=== PATIENT | male | born 1935 | race Caucasian/White ===

== ENCOUNTER 2018-07-09 15:02 | Inpatient (IN) ==
[2018-07-09] MEDS ORDERED: ALBUTEROL NEB INH ONE (15:40)
[2018-07-09] MEDS ORDERED: NS 1,000 ML IV ONE (15:43)
[2018-07-09 16:22] LABS: ALLEN TEST YES; BLOOD TYPE ARTERIAL; METHB 1.5 % (0.0-1.5); O2HB 95.4 % (95.0-99.0); PCO2(98.6) 37 mmHg (35-45); PO2(98.6) 92 mmHg (60-100); SAMPLE BLOOD; SAO2 98.9 % (95.0-100.0); THB 12.6 g/dL (11.5-17.4); pH(98.6) 7.48 (7.35-7.45)
[2018-07-09 16:24] LABS: MODALITY CANNULA
--- NOTE | 2018-07-09 16:27 | Diag Imaging Result Doc PS360 ---
EXAM: CHEST-PORTABLE INDICATION: cough TECHNIQUE: One view COMPARISON: 04/27/2018 FINDINGS: The left chest port is stable. Advanced pulmonary fibrosis is again noted. There is increased density in the right perihilar region as compared to the previous study. This is probably due to differences in exposure and inspiration. Superimposed infiltrate is possible, however. There are stable CABG changes. IMPRESSION: Advanced pulmonary fibrosis with increased density in the right perihilar region that could represent superimposed developing infiltrate. Electronically signed by Wan Mcpherson 07/09/2018 4:25 PM
[2018-07-09 17:25] LABS: BASO# 0.01 X1000 (0.0-0.2); BASO% 0.1 % (0.0-0.8); EOS# 0.37 X1000 (0.0-0.7); EOS% 5.5 % (0.0-10.0); HEMATOCRIT 38.6 % (42.0-52.0); HEMOGLOBIN 12.3 g/dL (14.0-18.0); IMM GRAN# 0.02 X1000 (0.0-0.04); IMM GRAN% 0.3 % (0.0-0.5); LYMPH# 0.65 X1000 (1.2-3.4); LYMPH% 9.7 % (20.5-51.1); MCH 29.8 PG (27-31); MCHC 31.9 g/dL (33-37); MCV 93.5 FL (81-99); MONO# 0.47 X1000 (0.11-0.59); MPV 10.5 FL (7.4-10.4); NEUT# 5.21 X1000 (1.4-6.5); NEUT% 77.4 % (42.2-75.2); PLT 281 X1000 (130-400); RBC 4.13 XMIL (4.7-6.1); RDW 14.9 % (11.5-14.5); WBC 6.73 X1000 (4.8-10.8)
[2018-07-09 17:40] LABS: AGAP 13; ALB/GLOB RATIO 1.1; ALBUMIN 2.9 g/dL (3.5-5.0); ALKALINE PHOSPHATASE 83 U/L (32-122); BUN 18 mg/dL (8-22); CALCIUM 8.6 mg/dL (8.8-10.2); CHLORIDE 104 mmol/L (98-107); COSMO 287; ESTIMATED GFR > 60; GLUCOSE 103 mg/dL (70-104); GOT 12 U/L (10-34); GPT 9 U/L (10-44); POTASSIUM 4.2 mmol/L (3.5-5.1); SODIUM 143 mmol/L (136-145); TCO2 26 mmol/L (25-35); TOTAL BILIRUBIN 0.61 mg/dL (0.20-1.00); TOTAL PROTEIN 5.6 g/dL (6.3-8.3)
[2018-07-09] MEDS ORDERED: VANCOMYCIN 1 GM/NS 1 GM/250 ML IVPB IV ONE (18:23)
[2018-07-09] MEDS ORDERED: ZOSYN 3.375 GM in NS 50 ML IV ONE (18:23)
[2018-07-09] MEDS ORDERED: VANCOMYCIN IV PER PHARMACY MISC SCH (18:30)
--- NOTE | 2018-07-09 19:08 | PROVIDER DOCUMENTATION ---
This chart was entered by Nerissa Kellogg Scribe, acting as scribe for Marquis Feldman PA. HPI-Respiratory General - General Chief Complaint: Shortness of Breath Stated Complaint: SHORTNESS OF BREATH Time Seen by Provider: 07/09/18 15:36 Source: patient, other (frend) Allergies/Adverse Reactions: Patient Allergies Allergy/AdvReac Type Severity Reaction Status Date / Time No Known Allergies Allergy Verified 07/09/18 15:22 Home Medications: Home Medication List Medication Instructions Recorded Confirmed Last Taken Type Carvedilol [Coreg] 3.125 mg PO BID 04/25/18 07/09/18 07/08/18 History Albuterol 2.5MG/Ipratrop 0.5MG 3 ml INH RTQ6H #120 neb 04/30/18 07/09/18 Rx [Duoneb] Prednisone 20 mg PO DAILY #30 tablet 04/30/18 07/09/18 07/08/18 Rx Aspirin [Adult Aspirin] 1 tab PO DAILY 07/09/18 07/09/18 07/08/18 History Cholecalciferol (Vitamin D3) 1 tab PO DAILY 07/09/18 07/09/18 07/08/18 History [Vitamin D3] Guaifenesin/Dextromethorphan 1 each PO PRN PRN 07/09/18 07/09/18 07/08/18 History [Mucinex Dm ER 1,200-60 mg Tab] Hydrochlorothiazide 1 tab PO DAILY 07/09/18 07/09/18 07/08/18 History - History of Present Illness-Resp Nature of Presenting Problem: 83 yowm presents to the ed with c/o sob, cough and is currently taking steroids. pt son has POA but lives in [place]. pt sts onset 2 days prior and pt is speaking in 2 word sentences. pt had x of pneumonia in 04/23 and has cancer but is in no tx Quality of Pain: reports: fullness Severity in ED: reports: moderate Onset/Duration: reports: 2 days ago Timing: reports: still present Exposure: reports: unknown cause Current Respiratory Medication Therapy: Initiated see nurses note Modifying Factors: improves with: albuterol inhaler, rest, sitting upright. worse with: exertion, coughing Associated Symptoms: reports: cough, hyperventilating (36), shortness of breath , wheezing. denies: dizziness, fever/chills Similar Symptoms Previously?: Yes (hx of pneumonia) Recently seen or treated by another doctor?: Yes Review of Systems - Adult - REVIEW OF SYSTEMS - ADULT ROS:: limited per condition Constitutional: denies: chills, fever Eyes: reports: no symptoms reported Ears, Nose, Mouth & Throat: reports: no symptoms reported Cardiovascular: denies: chest pain, palpitations Respiratory: reports: see HPI, cough, dyspnea on exertion, shortness of breath, wheezing Gastrointestinal: denies: abdominal pain, diarrhea, nausea, vomiting Genitourinary: reports: no symptoms reported Musculoskeletal: denies: back pain, muscle aches, neck pain Integumentary: reports: no symptoms reported Neurological: denies: dizziness/vertigo, headache/migraines, seizure, slurred speech Psychiatric: reports: no symptoms reported Endocrine: reports: no symptoms reported Hematologic/Lymphatic: reports: no symptoms reported Allergic/Immunologic: reports: no symptoms reported All Other Systems: Reviewed and Negative Past History - Adult - PAST MEDICAL HISTORY-ADULT Review of Records: reports: Old Records Reviewed, Nursing Assessment Review, Medications Reviewed, Social history reviewed & non-contributory. Major Childhood Illnesses: reports: denies history Cardiovascular: reports: cardiac disease, CAD, HTN Respiratory: reports: COPD, cancer Gastrointestinal: reports: denies history Genitourinary: reports: denies history Musculoskeletal: reports: denies history Neurological: reports: denies history Psychiatric: reports: denies history Endocrine/Immune: reports: denies history Other Conditions: reports: denies history - PRIOR SURGERIES/PROCEDURES Surgical/Procedure History: reports: appendectomy, CABG, back/neck - IMMUNIZATION STATUS Childhood Immunizations: See Nurse Assessment Flu Vaccine: See Nurse Assessment - FAMILY HISTORY Family History: reviewed, not pertinent - SOCIAL HISTORY Smoking: denies Substance Use: alcohol Alcohol Use Frequency: 2-3 times a month Number of drinks per typical drinking period:: 3-4 drinks Living Situation: family Physical Exam-General - PHYSICAL EXAM-ADULT Initial Vital Signs Reviewed: Yes - CONSTITUTIONAL General Appearance: alert, moderate distress - EYES Eyes: PERRL/EOMI, pink conjunctivae - HEAD, EARS, NOSE, MOUTH & THROAT HENMT: moist mucous membranes - NECK Neck: full range of motion, normal inspection - RESPIRATORY Respiratory: respiratory distress, decreased breath sounds, rhonchi (RUL), increased rate (36) - CARDIOVASCULAR Cardiovascular: normal peripheral pulses, tachycardia (106) - GASTROINTESTINAL (ABDOMEN) Abdominal Exam: normal bowel sounds, non tender, soft - LYMPHATIC Lymphatic: no adenopathy - MUSCULOSKELETAL Back Exam: normal inspection, no CVA tenderness, no vertebral tenderness Extremity: normal range of motion, non-tender, normal inspection, no pedal edema , no calf tenderness, normal capillary refill, pelvis stable - SKIN Integumentary: normal color, normal turgor, warm/dry - NEUROLOGIC Neurologic: grossly normal, no motor/sensory deficits - PSYCHIATRIC Psych/Mental Status: normal mood/affect, normal thought content, normal thought process, oriented x 3 Progress - PLAN OF CARE/RESULTS Progress/Plan/Lab Results: Vital Signs - 8 hr 07/09/18 15:09 07/09/18 15:52 07/09/18 16:04 Temperature 97.4 F L Pulse Rate 106 H Respiratory Rate 36 H Blood Pressure 147/95 177/110 O2 Sat by Pulse Oximetry 89 L 94 L 96 07/09/18 16:10 07/09/18 16:23 07/09/18 16:32 Temperature Pulse Rate 104 H Respiratory Rate 18 Blood Pressure 147/74 O2 Sat by Pulse Oximetry 94 L 100 07/09/18 17:02 07/09/18 17:31 Temperature Pulse Rate 98 H Respiratory Rate 20 Blood Pressure 121/90 139/66 O2 Sat by Pulse Oximetry 97 96 Laboratory Results - last 24 hr 07/09/18 07/09/18 07/09/18 16:14 16:49 16:49 WBC 6.73 RBC 4.13 L Hgb 12.3 L Hct 38.6 L MCV 93.5 MCH 29.8 MCHC 31.9 L RDW Std Deviation 14.9 H Plt Count 281 MPV 10.5 H Immature Gran % (Auto) 0.3 Neut % (Auto) 77.4 H Lymph % (Auto) 9.7 L [place] % (Auto) 7.0 Eos % (Auto) 5.5 Baso % (Auto) 0.1 Immature Gran # (Auto) 0.02 Neut # (Auto) 5.21 Lymph # (Auto) 0.65 L [place] # (Auto) 0.47 Eos # (Auto) 0.37 Baso # (Auto) 0.01 Specimen Type ARTERIAL Sample Site R RADIAL pH 7.48 H pCO2 37 pO2 92 HCO3 28.0 H Base Excess 4.0 H Oxyhemoglobin 95.4 ABG O2 Sat (Calculated) 17.0 ABG O2 Saturation 98.9 ABG Carboxyhemoglobin 2.10 ABG Methemoglobin 1.5 Ramon Test YES A-a O2 Difference 90.0 Total Hemoglobin 12.6 Lactate 1.70 Liter Flow 3.0 Blood Gas Modality CAN[place]ULA FiO2 % 32.0 Sodium 143 Potassium 4.2 Chloride 104 Carbon Dioxide 26 Anion Gap 13 BUN 18 Creatinine 1.0 Estimated GFR/1.73 m2 > 60 BUN/Creatinine Ratio 18 Glucose 103 Calculated Osmolality 287 Calcium 8.6 L Total Bilirubin 0.61 AST 12 ALT 9 L Alkaline Phosphatase 83 Troponin T Total Protein 5.6 L Albumin 2.9 L Globulin 2.7 Albumin/Globulin Ratio 1.1 Plasma Lactate 07/09/18 07/09/18 16:49 16:49 WBC RBC Hgb Hct MCV MCH MCHC RDW Std Deviation Plt Count MPV Immature Gran % (Auto) Neut % (Auto) Lymph % (Auto) [place] % (Auto) Eos % (Auto) Baso % (Auto) Immature Gran # (Auto) Neut # (Auto) Lymph # (Auto) [place] # (Auto) Eos # (Auto) Baso # (Auto) Specimen Type Sample Site pH pCO2 pO2 HCO3 Base Excess Oxyhemoglobin ABG O2 Sat (Calculated) ABG O2 Saturation ABG Carboxyhemoglobin ABG Methemoglobin Ramon Test A-a O2 Difference Total Hemoglobin Lactate Liter Flow Blood Gas Modality FiO2 % Sodium Potassium Chloride Carbon Dioxide Anion Gap BUN Creatinine Estimated GFR/1.73 m2 BUN/Creatinine Ratio Glucose Calculated Osmolality Calcium Total Bilirubin AST ALT Alkaline Phosphatase Troponin T 0.014 Total Protein Albumin Globulin Albumin/Globulin Ratio Plasma Lactate 1.5 Orders Category Date Time Status Admit - [facility] Routine AdmDCTranf 07/09/18 18:25 Active Activity - Up with Assistance ORDERED Care 07/09/18 19:02 Active Elevate Head of Bed DIRECTED Care 07/09/18 19:02 Active Encourage Fluids DIRECTED Care 07/09/18 19:02 Active Intake and Output-Strict Q 8-HR ASSESS Care 07/09/18 19:02 Active Nursing- Assist w/ IS as order ORDERED Care 07/09/18 19:02 Active Nursing- Obtain EKG once Care 07/09/18 15:42 Completed Oxygen Therapy- ED Nursing DIRECTED Care 07/09/18 15:40 Completed Saline Loc NOW Care 07/09/18 15:40 Inactive Turn, Cough and Deep Breathe Q2HR Care 07/09/18 19:02 Active Vital Signs Order Q 4-HR ASSESS Care 07/09/18 19:02 Active Z-Document. for Tele Applied ORDERED Care 07/09/18 19:02 Active Social Service Consult Routine Cons 07/09/18 19:02 Active Regular Diet Diet 07/09/18 18:25 Active CHEST-2 VIEWS [RAD] Routine Exams 07/10/18 06:00 Ordered CHEST-PORTABLE [RAD] Stat Exams 07/09/18 15:40 Completed ABG [RESP] Routine Lab 07/09/18 16:14 Completed BLOOD CULTURE [BLDCUL] Stat Lab 07/09/18 16:49 Ordered CBC WITH DIFF [HEME] Routine Lab 07/10/18 06:00 Ordered CBC WITH ELECTRONIC DIFF [HEME] Stat Lab 07/09/18 16:49 Completed COMPREHENSIVE METABOLIC PANEL [CHEM] Routine Lab 07/10/18 06:00 Ordered COMPREHENSIVE METABOLIC PANEL [CHEM] Stat Lab 07/09/18 16:49 Completed LACTATE, PLASMA [CHEM] Stat Lab 07/09/18 16:49 Completed SPUTUM CULTURE WITH GRAM STAIN [RM] Routine Lab 07/09/18 18:25 Uncollected TROPONIN T Stat Lab 07/09/18 16:49 Completed 0.9% Sodium Chloride Inj [Ns] 1,000 ml Med 07/09/18 15:43 Discontinued IV 999 mls/hr Acetylcysteine 20% [Mucomyst 20%] Med 07/09/18 19:30 Active 3 ml INH RTBID Albuterol [Albuterol Neb] Med 07/09/18 15:40 Discontinued 5 mg INH NOW ONE Aspirin EC Med 07/10/18 09:00 Active 81 mg PO DAILY Budesonide [Pulmicort] Med 07/09/18 19:30 Active 0.5 mg INH RTBID Carvedilol [Coreg] Med 07/09/18 21:00 Active 3.125 mg PO BID Enoxaparin [Lovenox] Med 07/10/18 09:00 Active 40 mg SUBQ Q24H Ergocalciferol (Vitamin D2) [Vitamin D] Med 07/10/18 09:00 Pending 1 unit PO Q7D Hydrochlorothiazide Med 07/10/18 09:00 Active 25 mg PO DAILY Ipratropium [place] Neb [Atrovent Neb] Med 07/09/18 19:30 Active 0.5 mg INH RTQ4H Levalbuterol Neb [Xopenex Neb] Med 07/09/18 19:30 Active 1.25 mg INH RTQ4H Pharmacy Order [Vancomycin IV Per Pharmacy] Med 07/09/18 18:30 Active 1 each MISC DIRECTED Piperacillin/Tazobactam [Zosyn] 3.375 gm Med 07/09/18 18:23 Discontinued 0.9% Sodium Chloride Inj [Ns] 50 ml IV NOW Piperacillin/Tazobactam [Zosyn] 3.375 gm Med 07/10/18 01:00 Active 0.9% Sodium Chloride Inj [Ns] 50 ml IV Q6H Prednisone Med 07/10/18 09:00 Active 20 mg PO DAILY Aerosol Treatments Routine Oth 07/09/18 18:25 Active Aerosol Treatments Stat Oth 07/09/18 15:40 Completed Incentive Spirometer Routine Oth 07/09/18 19:02 Active Oxygen Device Routine Oth 07/09/18 19:02 Active Pulse Oximetry Routine Oth 07/09/18 19:02 Active Telemetry [OM.EQ] Routine Oth 07/09/18 19:02 Active Transfer/Admit Order [TRANSFER] Routine Transfer 07/09/18 18:20 Completed 1840: breathing between words. CXR likely pna. Hypoxic on arrival. Will admit. Discussed with Dr. Link. Result Diagrams: 07/09/18 16:49 07/09/18 16:49 - REASSESSMENT Reassessment #1 Time Reassessed: 16:10 Status: unchanged - EKG 1 Time of EKG reading by physician:: 15:14 EKG Read and Signed by:: Raz Link EKG Interpretation (*Must complete 3 of following elements*): Abnormal Rate: 105 Rhythm: sinus tachycardia with 1st degree AV block [place]: normal QRS: other (possible left atrial enlargement/low voltage QRS) VA Interval: normal ST Wave: normal Comments: inferior infarct, age undetermined - XRAY 1 XRAY: Bilateral XRAY Study: Chest (EXAM: CHEST-PORTABLE INDICATION: cough TECHNIQUE: One view COMPARISON: 04/27/2018 FINDINGS: The left chest port is stable. Advanced pulmonary fibrosis is again noted. There is increased density in the right perihilar region as compared to the previous study. This is probably due to differences in exposure and inspiration. Superimposed infiltrate is possible , however. There are stable CABG changes. IMPRESSION: Advanced pulmonary fibrosis with increased density in the right perihilar region that could represent superimposed developing infiltrate. Electronically signed by Wan Mcpherson 07/09/2018 4:25 PM 07/09/18 1625 Interpreting Physician: Wan Mcpherson MD Dictated Date/Time: 07/09/18 1623 cc: Marquis Feldman PA; Kyree Scales) Impression: See EMR Report - CONSULTS/PCP/HOSPITALIST Notification #1 *Consult/PCP/Hospitalist*: Kathy SCOTT Time Discussed: 18:30 Consult Disposition: Admit (vanc/zosyn.) Departure - Departure Date of Disposition Decision: 07/09/18 Time of Disposition Decision: 18:54 DIAGNOSIS: Hypoxemia Pneumonia Qualifiers: Pneumonia type: due to unspecified organism Laterality: unspecified laterality Lung location: unspecified part of lung Qualified Code(s): J18.9 - Pneumonia, unspecified organism Lung cancer Qualifiers: Laterality: unspecified laterality Lung location: unspecified part of lung Qualified Code(s): C34.90 - Malignant neoplasm of unspecified part of unspecified bronchus or lung Disposition: ADMITTED INPATIENT 09 Certified Medical Emergency: Emergent Condition: Stable - Critical Care Note This patient required my direct & personal management of CC.: Yes Total Time (mins): 42 Critical Care Statement: This patient required my direct personal management to treat or rule out processes, the absence of which, could potentiallly result in sudden, clinically significant life or limb threatening deterioration. Attestation - Physician/ HELENA Attestation Patient care was provided by Advanced Practice Provider:: Yes Advanced Practice Provider:: Marquis Feldman Advanced Practice Provider documentation review:: The Mid-level provider documentation, treatment plan and medical decision making was reviewed by the physician who agrees with all treatment and medical decision making by the MLP. The physician spent face to face time with patient:: No Advanced Practice Provider documentation review:: Supervising physician onsite and consulted in the evaluation and care of this patient. The physician did not have a face to face encounter with the patient. This chart was documented by the indicated scribe, (Nerissa Kellogg Scribe) and accurately reflects the services I performed and decisions made by me, Marquis Feldman PA, as attested by the provider's signature.
[2018-07-09] MEDS: XOPENEX NEB INH SCH ×2 (19:30→23:30)
[2018-07-09] MEDS: PULMICORT INH SCH (19:30)
[2018-07-09] MEDS: ATROVENT NEB INH SCH ×2 (19:30→23:30)
[2018-07-09] MEDS: MUCOMYST 20% INH SCH (19:30)
[2018-07-09] MEDS: NEURONTIN PO SCH (21:00)
[2018-07-09] MEDS: COREG PO SCH (21:00)
[2018-07-09] MEDS ORDERED: VANCOMYCIN 1.9 GM in NS 500 ML IV ONE (21:00)
--- NOTE | 2018-07-09 21:16 | Diag Imaging Result Doc PS360 ---
EXAM: CT THORAX W/CONTRAST - 07/09/2018 HISTORY: sob; lung cancer TECHNIQUE: CT thorax with intravenous contrast COMPARISON: 04/25/2018 FINDINGS: There are emphysematous changes. There are some interstitial scarring/fibrosis. There is consolidation at the right lower lobe and posterior right upper lobe which is suspicious for pneumonia. There is no substantial pleural effusion or pneumothorax identified. There is mild fullness of the subcarinal mediastinum similar to prior. There are calcified gallstone noted in the gallbladder. IMPRESSION: Emphysematous changes. Interstitial fibrosis. Consolidation at right lower lobe and posterior right upper lobe, compatible with pneumonia. This exam was performed using automated exposure control, adjustment of mA or kV according to patient size, and/or use of iterative reconstruction technique. Electronically signed by Wilmar Berumen 07/09/2018 9:13 PM
--- NOTE | 2018-07-09 21:41 | HISTORY AND PHYSICAL ---
PRIMARY CARE PROVIDER: Dr. Kyree Scales. PRIMARY CUSTOMER SERVICE REPRESENTATIVE TELLER: Dr. Eddie Lyon out of [place]. PRIMARY ONCOLOGIST: Dr. Wan Zelaya out of [place]. CHIEF COMPLAINT: Shortness of breath. HISTORY OF PRESENT ILLNESS: Mr. Jacinta Woodson is an 83-year-old male with a medical history of inoperable lung cancers on both sides diagnosed in September 2017. He has been receiving treatments, but currently treatments are now held due to decompensating. He is here for complaints of shortness of breath that has worsened over the last 36 hours with sinus and chest congestion. He does have a productive cough but is unable to tell me what color , or if it has a color. He has no other complaints other than it is difficult to even speak given the significant shortness of breath. A chest x-ray reveals that there is advanced pulmonary fibrosis, and in the right perihilar region there could be a developing infiltrate. Currently his white count is normal, and lactate is normal, but we will go ahead and get him admitted given his difficulties with breathing. Will admit to [facility] and treat accordingly. PAST MEDICAL HISTORY: 1. Lung cancer, both lungs, with September 2017 diagnosis, and he has received treatment, but currently is not receiving treatment. 2. Hypertension. 3. Coronary artery disease. Had CABG x4 in the past. 4. COPD on continuous 3 liters O2. 5. Bilateral lower extremity neuropathy. PAST SURGICAL HISTORY: 1. CABG x4. 2. Portacath. 3. Lung biopsy. 4. Left carotid endarterectomy but no history of stroke. 5. Tonsillectomy/adenoidectomy. 6. Appendectomy. SOCIAL HISTORY: Quit smoking in 1995, but prior to that he smoked 2 packs per day for 40 years on and off. No smokeless tobacco, but he drinks 1 ounce of 80 to 100-proof whiskey every night. He denies any illicit drug use. He lives at home alone. His best friend is at the bedside with him. FAMILY HISTORY: He does not know his mother's history. Said his father in 1974 from lung cancer. ALLERGIES: No known drug allergies. HOME MEDICATIONS: 1. Aspirin 81 mg p.o. daily. 2. Coreg 3.125 mg p.o. twice daily 3. Vitamin D3 at 50,000 units p.o. daily. 4. Mucinex DM 1200 mg as needed. 5. Hydrochlorothiazide 25 mg p.o. daily 6. DuoNeb every 6 hours. 7. Prednisone 20 mg p.o. daily. REVIEW OF SYSTEMS: A 14-point review of systems is completed, and all are negative except as mentioned above in the HPI. He denies having any fevers, but he always has chills. He has sinus and chest congestion with shortness of breath that has worsened over the last 36 hours. He does have a productive cough but is unable to state what color the phlegm is. PHYSICAL EXAMINATION: VITAL SIGNS: Temperature 97.4, heart rate 98,. respiratory rate 20, blood pressure 139/66, O2 saturation 96% on 3 liters nasal cannula. GENERAL: Mr. Jacinta Woodson is an 83-year-old male with a medical history of lung cancer. He is able to answer questions appropriately. He is just slow to respond given the difficulties with respirations. HEENT: Atraumatic, normocephalic. Pupils equal, round, and reactive to light. Extraocular movements intact. Mucous membranes are dry. NECK: Trachea is midline. CARDIOVASCULAR: S1 and S2, tachycardic rate and rhythm. No rubs, gallops or murmurs. No lower extremity edema and +2 dorsalis and radial pulses. Negative JVD or carotid bruits. PULMONARY: Coarse throughout. Rhonchi throughout anteriorly. Increased work of breathing. Mild accessory muscle use. He is tolerating 3 liters nasal cannula as of right now. GI: Soft, nontender, nondistended. Positive bowel sounds x4. EXTREMITIES: Moves all extremities equally with full range of motion. NEUROLOGIC: Alert and oriented x3. Follows commands. Sensory is intact but decreased. Tingling in the feet. SKIN: Warm, dry and intact. LABORATORY DATA: White blood cells 6000, hemoglobin 12, hematocrit 38, platelet count 281. ABGs on 3 liters nasal cannula show a pH of 7.48, pCO2 of 37, pO2 of 92, bicarb of 28 , base excess 4, saturation 95% with a lactate of 1.7. Serum lactate is 1.5, sodium 143, potassium 4.2, BUN 18, creatinine 1.0. Glucose 103, calcium 8.6, bilirubin 0.61, AST 12, ALT 9, troponin 0.014, albumin 2.9. IMAGING: Chest x-ray: Advanced pulmonary fibrosis with increased density in the right perihilar region that could represent superimposed developing infiltrate. ASSESSMENT/PLAN: 1. Zojhex-rewr-[id number] pneumonia, primarily on the right. He is coarse throughout. He had hypoxia. He is on continuous 3 liters. This continued and improved after nebulizers. He will be given broad-spectrum antibiotics. Lactate is normal. White count is normal. 2. Chronic obstructive pulmonary disease with mild hypoxia at this time. No CO2 retention. He is getting a 1-time dose of IV Solu-Medrol. Will continue on prednisone daily. Nebulizers scheduled. 3. Hypertension. Continue home medications. 4. Coronary artery disease. Denies chest pain. 5. Bilateral lung cancer. Treatments are being held at this time. Followed by Dr. Zelaya out of [place]. Was diagnosed in September 2017. 6. Complaints of bilateral lower extremity neuropathy symptoms, likely secondary to cancer treatment. Will add Neurontin to medications. 7. Anemia, currently stable. It is actually more elevated than the usual. It is usually around 9, and his hemoglobin is 12 right now. Vitals are stable with that. 8. Deep venous thrombosis prophylaxis with Lovenox. Dictated by SONIA Barbosa for Steve Gentile MD Addendum: Patient seen and examined by myself. Agree with SONIA note. It reflects my assessment and plan. Patient is being admitted to hospital for HCAP. Will start broad spectrum IV antibiotics and breathing treatments that will help with COPD exacerbation as well. Patient also has lung cancer. Will do CT of chest to have a better visualization of lung anatomy and see if there is any progression of lung cancer. Will monitor patient closely. cc: SONIA Barbosa MD Chad Mcelroy, MD Jason Smith, MD John M. Waples, MD MTDD
[2018-07-09] MEDS: MUCINEX PO SCH (22:32)
[2018-07-10] MEDS: TESSALON PO PRN ×3 (00:05→21:49)
[2018-07-10] MEDS: ZOSYN 3.375 GM in NS 50 ML IV SCH ×5 (01:00→23:59)
[2018-07-10] MEDS: ATROVENT NEB INH SCH ×7 (03:30→23:35)
[2018-07-10] MEDS: XOPENEX NEB INH SCH ×7 (03:30→23:35)
[2018-07-10] MEDS: HYDROMET LIQUID PO PRN ×2 (04:56→21:45)
[2018-07-10 07:23] LABS: BASO# 0.03 X1000 (0.0-0.2); BASO% 0.6 % (0.0-0.8); EOS# 0.28 X1000 (0.0-0.7); HEMOGLOBIN 11.1 g/dL (14.0-18.0); LYMPH# 0.45 X1000 (1.2-3.4); LYMPH% 9.6 % (20.5-51.1); MCH 30.2 PG (27-31); MCHC 31.7 g/dL (33-37); MCV 95.1 FL (81-99); MONO# 0.42 X1000 (0.11-0.59); MPV 10.2 FL (7.4-10.4); NEUT# 3.51 X1000 (1.4-6.5); NEUT% 74.8 % (42.2-75.2); PLT 231 X1000 (130-400); RBC 3.68 XMIL (4.7-6.1); RDW 15.1 % (11.5-14.5); WBC 4.69 X1000 (4.8-10.8)
[2018-07-10] MEDS: PULMICORT INH SCH ×2 (07:27→20:05)
[2018-07-10 07:54] LABS: ALB/GLOB RATIO 0.9; ALBUMIN 2.6 g/dL (3.5-5.0); CREATININE 1.2 mg/dL (0.7-1.2); TOTAL BILIRUBIN 0.62 mg/dL (0.20-1.00); TOTAL PROTEIN 5.4 g/dL (6.3-8.3)
[2018-07-10] MEDS: MUCINEX PO SCH ×2 (08:49→21:50)
[2018-07-10] MEDS: LOVENOX SUBQ SCH (08:50)
[2018-07-10] MEDS: HYDROCHLOROTHIAZIDE PO SCH (08:50)
[2018-07-10] MEDS: PREDNISONE PO SCH (08:50)
--- NOTE | 2018-07-10 09:50 | EKG Report ---
Test Performed on : 07/09/2018 3:14:30 PM Test Reason : SOB Blood Pressure : / mmHG Vent. Rate : 105 BPM Atrial Rate : 105 BPM P-R Int : 212 ms QRS Dur : 072 ms QT Int : 336 ms P-R-T Axes : 040 -22 038 degrees QTc Int : 444 ms Sinus tachycardia. with 1st degree AV block. Possible Left atrial enlargement Low voltage QRS Inferior infarct , age undetermined Abnormal ECG When compared with ECG of 24-APR-2018 21:42, Inferior infarct is now present T wave inversion now evident in Anterior leads Unconfirmed Result
--- NOTE | 2018-07-10 10:08 | Diag Imaging Result Doc PS360 ---
EXAM: CHEST-2 VIEWS HISTORY: Pneumonia TECHNIQUE: Chest two views COMPARISON: 07/09/2018 FINDINGS: Poor inspiratory effort. There are increased interstitial markings diffusely within both lungs. No change in the left subclavian portacatheter. No pneumothorax. Sternal wires and surgical clips are present. No cardiomegaly. IMPRESSION: Stable chest. Electronically signed by Sesar Shipley 07/10/2018 10:05 AM
[2018-07-10] MEDS: MUCOMYST 20% INH SCH ×2 (11:20→20:06)
[2018-07-10] MEDS: ASPIRIN EC PO SCH (14:12)
[2018-07-10] MEDS: COREG PO SCH ×2 (14:14→21:50)
[2018-07-10] MEDS: NEURONTIN PO SCH ×2 (14:14→21:50)
--- NOTE | 2018-07-10 16:29 | PROGRESS NOTE ---
DATE: 07/10/2017 SUBJECTIVE: Patient reports still feeling short of breath better in comparing with yesterday but still that sensation is present. OBJECTIVE: Vital Signs: Temperature 97.3 degrees, heart rate 92, respiratory rate 28, blood pressure 130/61, O2 saturation 97% on 4 L nasal cannula. General: This is a chronically ill- looking 83-year-old male lying in bed in no acute distress. HEENT: Head is normocephalic, atraumatic. Neck: No JVD noted. No carotid bruits. No lymphadenopathy, no thyromegaly. Cardiovascular: S1, S2 heard tachycardic. No murmurs, gallops, or rubs. Respiratory: Coarse breath sound and wheezing noted in both pulmonary sanchez mostly noted in both bases but patient is not using any accessory muscles or having work of breathing. Abdomen: Soft, nontender to palpation, bowel sounds present. No organomegaly. Extremities: No clubbing, cyanosis, or edema. Peripheral pulses present in both legs. Neurologic: Patient alert oriented x3 and moves 4 extremities. LABORATORY DATA: Reviewed. ASSESSMENT AND PLAN: 1. Healthcare-associated pneumonia. Patient is on vancomycin and Zosyn, patient is on 4 L of oxygen is still complaining of shortness of breath, breathing treatments every 4 hours so at this point will continue with same management. 2. Chronic obstructive pulmonary disease exacerbation. Because of being in any CO2 retention will continue with breathing treatments and Solu-Medrol. 3. Hypertension, blood pressure is under control. Will continue with the same management. 4. Bilateral lung cancer. We have done CT of the chest yesterday and basically this shows emphysematous changes with interstitial fibrosis but did not look like the cancer is getting enlarged so at this point we are going to continue with same management. 5. Peripheral neuropathy, will continue with Neurontin. 6. Anemia chronic disease hemoglobin stable. Will continue to monitor CBC daily. cc: Steve Gentile MD
[2018-07-10] MEDS: VANCOMYCIN 1.4 GM in NS 250 ML IV SCH (21:50)
[2018-07-11] MEDS: XOPENEX NEB INH SCH ×3 (03:53→11:33)
[2018-07-11] MEDS: ATROVENT NEB INH SCH ×3 (03:53→11:33)
[2018-07-11] MEDS: ZOSYN 3.375 GM in NS 50 ML IV SCH (06:42)
[2018-07-11] MEDS: HYDROMET LIQUID PO PRN ×3 (06:48→20:20)
[2018-07-11] MEDS: TESSALON PO PRN ×2 (06:48→13:49)
[2018-07-11] MEDS: MUCOMYST 20% INH SCH ×2 (07:38→19:21)
[2018-07-11] MEDS: PULMICORT INH SCH ×2 (07:38→19:20)
[2018-07-11] MEDS: ASPIRIN EC PO SCH (09:49)
[2018-07-11] MEDS: LOVENOX SUBQ SCH (09:49)
[2018-07-11] MEDS: NEURONTIN PO SCH ×2 (09:49→20:22)
[2018-07-11] MEDS: COREG PO SCH ×2 (09:49→20:21)
[2018-07-11] MEDS: HYDROCHLOROTHIAZIDE PO SCH (09:49)
[2018-07-11] MEDS: PREDNISONE PO SCH (09:50)
[2018-07-11] MEDS: MUCINEX PO SCH ×2 (09:50→20:22)
[2018-07-11] MEDS ORDERED: DUONEB (A & A) INH PRN (13:18)
[2018-07-11] MEDS: SODIUM CHLORIDE 0.9% INJ SCH (13:56)
[2018-07-11] MEDS: PROTONIX IV SCH (13:56)
[2018-07-11] MEDS: MAXIPIME 2 GM in NS 100 ML IV SCH (13:56)
[2018-07-11] MEDS: SOLU-MEDROL IV SCH ×2 (13:57→20:21)
--- NOTE | 2018-07-11 15:12 | PROGRESS NOTE ---
DATE: 07/11/2018 SUBJECTIVE: Patient reports still feeling short of breath. He reports some medications already for cough. OBJECTIVE: Vital Signs: Temperature 100.4, heart rate 97, respiratory rate 20, blood pressure 136/63, O2 saturation 97% on 4 L nasal cannula. General: This is a chronically ill-looking, 83- year-old, male, lying in bed, in no acute distress. Cardiovascular: S1 and S2 heard. No murmurs, gallops, or rubs. Regular rate and rhythm. Respiratory: Coarse breath sounds noted as well as wheezing in both pulmonary sanchez. Patient is not using any accessory muscles or having work of breathing. Abdomen: Soft. Nontender to palpation. Bowel sounds present. No organomegaly. Extremities: No clubbing, cyanosis, or edema. Peripheral pulses present in both legs. Neurologic Exam: Patient alert and oriented x3. Moves 4 extremities. LABORATORY DATA: Reviewed. ASSESSMENT AND PLAN: 1. Healthcare-associated pneumonia. The patient is on vancomycin and Zosyn, but, unfortunately, he is still spiking fever. At this point, will continue with the same management. 2. Chronic obstructive pulmonary disease exacerbation. Will continue with breathing treatments and Solu-Medrol intravenously as well. 3. Hypertension. Blood pressure is under control. Will continue with the same management. 4. Bilateral lung cancer. The CT that we had done yesterday showed interstitial fibrosis, but no enlargement of the tumor. 5. Anemia of chronic disease. Hemoglobin is stable. Will continue to monitor CBC. DISPOSITION: I think at this point, considering that this patient is still spiking fever, I prefer to continue to monitor for 24 hours. If he continues to spike fever, then we will switch antibiotics. cc: Steve Gentile MD
[2018-07-11] MEDS: DUONEB (A & A) INH SCH ×3 (15:38→23:20)
[2018-07-11] MEDS: VANCOMYCIN 1.4 GM in NS 250 ML IV SCH (20:21)
[2018-07-12] MEDS: TESSALON PO PRN ×4 (01:43→23:03)
[2018-07-12] MEDS: MAXIPIME 2 GM in NS 100 ML IV SCH ×2 (01:44→13:07)
[2018-07-12] MEDS: HYDROMET LIQUID PO PRN ×4 (01:50→23:03)
[2018-07-12] MEDS: DUONEB (A & A) INH SCH ×6 (03:10→23:10)
[2018-07-12] MEDS: SOLU-MEDROL IV SCH ×3 (05:39→23:04)
[2018-07-12] MEDS: PULMICORT INH SCH ×2 (07:50→19:13)
[2018-07-12] MEDS: MUCOMYST 20% INH SCH ×2 (07:50→19:12)
[2018-07-12] MEDS: COREG PO SCH ×2 (09:21→23:04)
[2018-07-12] MEDS: NEURONTIN PO SCH ×2 (09:21→23:03)
[2018-07-12] MEDS: MUCINEX PO SCH ×2 (09:22→23:03)
[2018-07-12] MEDS: ASPIRIN EC PO SCH (09:22)
[2018-07-12] MEDS: LOVENOX SUBQ SCH (09:22)
[2018-07-12] MEDS: HYDROCHLOROTHIAZIDE PO SCH (09:22)
[2018-07-12 10:12] LABS: BASO# 0.01 X1000 (0.0-0.2); BASO% 0.1 % (0.0-0.8); HEMATOCRIT 37.8 % (42.0-52.0); IMM GRAN# 0.02 X1000 (0.0-0.04); IMM GRAN% 0.3 % (0.0-0.5); LYMPH# 0.22 X1000 (1.2-3.4); LYMPH% 3.2 % (20.5-51.1); MCH 29.4 PG (27-31); MCHC 31.7 g/dL (33-37); MCV 92.6 FL (81-99); MONO# 0.34 X1000 (0.11-0.59); MONO% 4.9 % (1.7-9.3); MPV 10.3 FL (7.4-10.4); NEUT# 6.36 X1000 (1.4-6.5); NEUT% 91.5 % (42.2-75.2); PLT 203 X1000 (130-400); RBC 4.08 XMIL (4.7-6.1); RDW 14.2 % (11.5-14.5); WBC 6.95 X1000 (4.8-10.8)
[2018-07-12 10:26] LABS: CALCIUM 8.1 mg/dL (8.8-10.2); CREATININE 1.2 mg/dL (0.7-1.2)
[2018-07-12 10:53] LABS: BANDS 26 % (0-1); LYMPHS 2 % (21-51); MONO 2 % (1-9); SEGS 70 % (42-75)
[2018-07-12] MEDS: SODIUM CHLORIDE 0.9% INJ SCH (13:07)
[2018-07-12] MEDS: PROTONIX IV SCH (13:07)
[2018-07-12] MEDS: MIRALAX PO SCH (13:17)
--- NOTE | 2018-07-12 18:46 | PROGRESS NOTE ---
DATE: 07/12/2018 SUBJECTIVE: Patient reports feeling still short of breath with some cough that she is not able to bring out, no other complaints noted. OBJECTIVE: Vitals: Temperature 97.7 degrees, heart rate 96, respiratory rate 22, blood pressure 127/72, O2 saturation 95% on 3 L nasal cannula. General: This is a chronically ill- looking 83-year-old male lying in bed in no acute distress. HEENT: Head is normocephalic, atraumatic. Neck: No JVD noted. No carotid bruits. No lymphadenopathy, no thyromegaly. Cardiovascular: S1, S2 heard. No murmurs, gallops, or rubs. Regular rate and rhythm. Respiratory: Breath sounds still noted in both pulmonary sanchez as well as wheezing worse in both pulmonary bases patient not using any accessory muscles or having work of breathing. Abdomen: Soft, nontender to palpation, bowel sounds present, no organomegaly. Extremities: No clubbing, cyanosis, or edema, peripheral pulses present in both legs. Neurological: Patient alert oriented x3. Moves 4 extremities. LABORATORY DATA: Reviewed. ASSESSMENT AND PLAN: 1. Healthcare-associated pneumonia. Patient on vancomycin and Zosyn. At the time of my examination is 24 hours since he has not fever any more. At this point will continue with the same management. 2. Chronic obstructive pulmonary disease exacerbation, will continue with breathing treatment and Solu-Medrol IV as well. 3. Hypertension, blood pressures acceptable, will continue with same medications. 4. Bilateral lung cancer, no expansions of the lung cancer according to the last CT that we have done. 5. Anemia of chronic disease, hemoglobin stable, will continue to monitor. 6. Disposition. At this point will continue with same management. cc: Steve Gentile MD
[2018-07-12] MEDS: VANCOMYCIN 1.4 GM in NS 250 ML IV SCH (23:03)
[2018-07-13] MEDS: MAXIPIME 2 GM in NS 100 ML IV SCH ×2 (01:20→15:11)
[2018-07-13] MEDS: DUONEB (A & A) INH SCH ×6 (03:21→23:45)
[2018-07-13] MEDS: HYDROMET LIQUID PO PRN ×2 (05:38→22:45)
[2018-07-13] MEDS: SOLU-MEDROL IV SCH ×3 (05:38→22:45)
[2018-07-13] MEDS: TESSALON PO PRN ×2 (05:38→22:45)
[2018-07-13 07:27] LABS: HEMATOCRIT 36.6 % (42.0-52.0); HEMOGLOBIN 11.9 g/dL (14.0-18.0); IMM GRAN# 0.02 X1000 (0.0-0.04); IMM GRAN% 0.3 % (0.0-0.5); LYMPH# 0.33 X1000 (1.2-3.4); LYMPH% 4.3 % (20.5-51.1); MCH 29.8 PG (27-31); MCHC 32.5 g/dL (33-37); MCV 91.7 FL (81-99); MONO# 0.44 X1000 (0.11-0.59); MONO% 5.7 % (1.7-9.3); NEUT# 6.92 X1000 (1.4-6.5); NEUT% 89.7 % (42.2-75.2); PLT 206 X1000 (130-400); RBC 3.99 XMIL (4.7-6.1); RDW 14.1 % (11.5-14.5); WBC 7.71 X1000 (4.8-10.8)
[2018-07-13 07:34] LABS: CREATININE 1.4 mg/dL (0.7-1.2); POTASSIUM 4.3 mmol/L (3.5-5.1)
[2018-07-13 07:49] LABS: BANDS 22 % (0-1); LYMPHS 6 % (21-51); SEGS 72 % (42-75)
[2018-07-13] MEDS: PULMICORT INH SCH ×2 (08:41→19:30)
[2018-07-13] MEDS: MUCOMYST 20% INH SCH ×2 (08:41→19:30)
[2018-07-13] MEDS ORDERED: VITAMIN D PO SCH (09:00)
[2018-07-13] MEDS: ASPIRIN EC PO SCH (10:30)
[2018-07-13] MEDS: HYDROCHLOROTHIAZIDE PO SCH (10:30)
[2018-07-13] MEDS: NEURONTIN PO SCH ×2 (10:30→22:45)
[2018-07-13] MEDS: COREG PO SCH ×2 (10:30→22:46)
[2018-07-13] MEDS: MUCINEX PO SCH ×2 (10:31→22:45)
[2018-07-13] MEDS: LOVENOX SUBQ SCH (10:31)
[2018-07-13] MEDS: MIRALAX PO SCH (10:31)
[2018-07-13] MEDS: SODIUM CHLORIDE 0.9% INJ SCH (12:32)
[2018-07-13] MEDS: PROTONIX IV SCH (12:32)
--- NOTE | 2018-07-13 13:29 | PROGRESS NOTE ---
DATE: 07/13/2018 SUBJECTIVE: The patient reports still having some cough, but shortness of breath is slowly getting better. OBJECTIVE: Vital Signs: Temperature 97.4 degrees, heart rate 98, respiratory rate 20, blood pressure 136/81, O2 saturation 96% on room air. General: This is a chronically ill-looking 83- year-old male, lying in bed, in no acute distress. HEENT: Head is normocephalic and atraumatic. Cardiovascular: S1, S2 heard. No murmurs, gallops, or rubs. Regular rate and rhythm. Respiratory: Coarse breath sounds and wheezing noted in both pulmonary bases. Patient not using any accessory muscles or having work of breathing. Abdomen: Soft. Nontender to palpation. Bowel sounds present. No organomegaly. Extremities: No clubbing, cyanosis, or edema. Peripheral pulses present in both legs. Neurological: Patient is alert and oriented x3. Moves 4 extremities. LABORATORY DATA: Reviewed and normal white cell count with renal function of 1.4. ASSESSMENT AND PLAN: 1. Healthcare-associated pneumonia. Patient is on vancomycin and Zosyn. Because of mild elevation on vancomycin and considering his age, I prefer to switch to Zyvox 600 mg IV q.12 hours. We will continue with the same management. 2. Chronic obstructive pulmonary disease exacerbation. We will continue with DuoNeb and Solu- Medrol IV as well. 3. Hypertension blood pressure is under control. We will continue with the same management. 4. Bilateral lung cancer. Stable. 5. Anemia of chronic disease. Hemoglobin is stable. We will continue to monitor. 6. Disposition. At this point, we will continue with the same management. Physical therapy will be consulted. I think this patient will be still few days in the hospital because considering his age and comorbidities, it is taking more time to recover from that pneumonia. cc: Steve Gentile MD
[2018-07-13] MEDS: ZYVOX 600 MG/D5W 600 MG/300 ML IVPB IV SCH (16:00)
[2018-07-14] MEDS: MAXIPIME 2 GM in NS 100 ML IV SCH ×2 (02:57→14:53)
[2018-07-14] MEDS: ZYVOX 600 MG/D5W 600 MG/300 ML IVPB IV SCH ×2 (03:31→14:53)
[2018-07-14] MEDS: DUONEB (A & A) INH SCH ×6 (04:00→23:14)
[2018-07-14] MEDS: SOLU-MEDROL IV SCH ×3 (05:36→22:26)
[2018-07-14] MEDS: PULMICORT INH SCH ×2 (07:49→19:39)
[2018-07-14] MEDS: MUCOMYST 20% INH SCH ×2 (07:49→19:39)
[2018-07-14 08:34] LABS: BASO# 0.01 X1000 (0.0-0.2); BASO% 0.1 % (0.0-0.8); IMM GRAN# 0.03 X1000 (0.0-0.04); IMM GRAN% 0.3 % (0.0-0.5); LYMPH# 0.33 X1000 (1.2-3.4); LYMPH% 3.8 % (20.5-51.1); MCH 29.6 PG (27-31); MCHC 32.4 g/dL (33-37); MCV 91.4 FL (81-99); MONO# 0.44 X1000 (0.11-0.59); NEUT# 7.97 X1000 (1.4-6.5); NEUT% 90.8 % (42.2-75.2); PLT 201 X1000 (130-400); RBC 4.05 XMIL (4.7-6.1); RDW 14.2 % (11.5-14.5); WBC 8.78 X1000 (4.8-10.8)
[2018-07-14 08:38] LABS: CALCIUM 8.8 mg/dL (8.8-10.2); CREATININE 1.2 mg/dL (0.7-1.2); POTASSIUM 3.6 mmol/L (3.5-5.1)
[2018-07-14 08:39] LABS: BANDS 8 % (0-1)
[2018-07-14 08:40] LABS: LYMPHS 2 % (21-51); MONO 2 % (1-9); SEGS 86 % (42-75)
[2018-07-14] MEDS: MIRALAX PO SCH (10:14)
[2018-07-14] MEDS: ASPIRIN EC PO SCH (10:15)
[2018-07-14] MEDS: COREG PO SCH ×2 (10:15→22:25)
[2018-07-14] MEDS: HYDROCHLOROTHIAZIDE PO SCH (10:15)
[2018-07-14] MEDS: MUCINEX PO SCH ×2 (10:15→22:25)
[2018-07-14] MEDS: NEURONTIN PO SCH ×2 (10:15→22:25)
[2018-07-14] MEDS: LOVENOX SUBQ SCH (10:15)
--- NOTE | 2018-07-14 14:31 | PROGRESS NOTE ---
DATE: 07/14/2018 SUBJECTIVE: The patient reports he is still having some cough, but generally speaking he is stable. OBJECTIVE: Vital Signs: Temperature 97.3, heart rate 84, respiratory rate 22, blood pressure 138/68, O2 sat 97% 2 L nasal cannula. General Examination: This is a chronically ill-looking 83- year-old male lying in bed in no acute distress. HEENT: Head is normocephalic, atraumatic. Neck: No JVD noted. No carotid bruits. No lymphadenopathy. Cardiovascular: S1, S2 heard. No murmurs, gallops or rubs. Regular rate and rhythm. Respiratory: Coarse breath sounds and wheezing noted in both pulmonary bases unchanged in comparing with the last previous days. Patient is not using any accessory muscles or having work of breathing. Abdomen: Soft, nontender to palpation. Bowel sounds present. No organomegaly. Extremities: No clubbing, cyanosis or edema. Peripheral pulses present in both legs. Neurologic: Patient is alert and oriented x 3. Moves 4 extremities. LABORATORY DATA: White cell count 8.78, hemoglobin 12.0, hematocrit 37.0 platelets 201,000, with normal BMP. ASSESSMENT AND PLAN: 1. Healthcare-associated pneumonia. Patient continues to be on Zyvox and Zosyn. Clinically he is stable. His oxygen needs are still 3 L of oxygen by nasal cannula. We will continue with the same management. 2. Chronic obstructive pulmonary disease exacerbation secondary to condition # 1. The patient is on DuoNeb every 4 hours and Solu-Medrol IV as well. We will continue with the same management. 3. Hypertension. Blood pressure has been under control in the range of 130s to 150. We will continue with the same management. 4. Bilateral lung cancer is stable. 5. Anemia of chronic disease. Hemoglobin is unchanged. Will continue to monitor CBC while this patient is in the hospital. DISPOSITION: At this point, we will continue with the same management. Physical Therapy is supposed to work with this patient. I think he will be here in the hospital for at least this week and we will see if on Friday he is ready to go. I think he will need to go to rehab unless Physical Therapy recommends home with home health. cc: Steve Gentile MD MTDD
[2018-07-14] MEDS: PROTONIX IV SCH (14:53)
[2018-07-14] MEDS: HYDROMET LIQUID PO PRN ×2 (16:45→22:36)
[2018-07-14] MEDS: TESSALON PO PRN ×2 (16:45→22:36)
[2018-07-15] MEDS: MAXIPIME 2 GM in NS 100 ML IV SCH ×2 (03:13→14:17)
[2018-07-15] MEDS: DUONEB (A & A) INH SCH ×6 (03:15→23:10)
[2018-07-15] MEDS: ZYVOX 600 MG/D5W 600 MG/300 ML IVPB IV SCH ×2 (04:00→15:36)
[2018-07-15] MEDS: HYDROMET LIQUID PO PRN ×3 (05:03→16:04)
[2018-07-15] MEDS: SOLU-MEDROL IV SCH ×3 (05:03→20:45)
[2018-07-15] MEDS: TESSALON PO PRN ×3 (05:03→16:04)
[2018-07-15] MEDS: PULMICORT INH SCH ×2 (07:37→19:30)
[2018-07-15] MEDS: MUCOMYST 20% INH SCH ×2 (07:38→19:30)
[2018-07-15 08:04] LABS: BASO# 0.01 X1000 (0.0-0.2); BASO% 0.1 % (0.0-0.8); HEMATOCRIT 35.7 % (42.0-52.0); HEMOGLOBIN 11.4 g/dL (14.0-18.0); IMM GRAN# 0.03 X1000 (0.0-0.04); IMM GRAN% 0.3 % (0.0-0.5); LYMPH# 0.36 X1000 (1.2-3.4); LYMPH% 3.9 % (20.5-51.1); MCH 29.4 PG (27-31); MCHC 31.9 g/dL (33-37); MONO# 0.38 X1000 (0.11-0.59); MONO% 4.2 % (1.7-9.3); MPV 11.1 FL (7.4-10.4); NEUT# 8.37 X1000 (1.4-6.5); NEUT% 91.5 % (42.2-75.2); PLT 202 X1000 (130-400); RBC 3.88 XMIL (4.7-6.1); RDW 14.3 % (11.5-14.5); WBC 9.15 X1000 (4.8-10.8)
[2018-07-15 08:19] LABS: AGAP 12; BUN 31 mg/dL (8-22); CALCIUM 8.7 mg/dL (8.8-10.2); CHLORIDE 97 mmol/L (98-107); COSMO 287; CREATININE 1.1 mg/dL (0.7-1.2); ESTIMATED GFR > 60; GLUCOSE 211 mg/dL (70-104); POTASSIUM 3.9 mmol/L (3.5-5.1); SODIUM 137 mmol/L (136-145); TCO2 28 mmol/L (25-35)
[2018-07-15 10:03] LABS: BANDS 12 % (0-1); MONO 4 % (1-9); SEGS 84 % (42-75)
[2018-07-15] MEDS: COREG PO SCH ×2 (10:35→20:45)
[2018-07-15] MEDS: MIRALAX PO SCH (10:35)
[2018-07-15] MEDS: HYDROCHLOROTHIAZIDE PO SCH (10:35)
[2018-07-15] MEDS: MUCINEX PO SCH ×2 (10:35→20:45)
[2018-07-15] MEDS: LOVENOX SUBQ SCH (10:35)
[2018-07-15] MEDS: ASPIRIN EC PO SCH (10:35)
[2018-07-15] MEDS: NEURONTIN PO SCH ×2 (10:35→20:45)
[2018-07-15] MEDS: PROTONIX PO SCH (14:17)
--- NOTE | 2018-07-15 15:57 | PROGRESS NOTE ---
DATE: 07/15/2018 SUBJECTIVE: The patient reports he is still having some cough, but not able to bring out phlegm. OBJECTIVE: Vital Signs: Temperature 97.4, heart rate 90, respiratory rate 18, blood pressure 139/69, O2 saturation 96% 2 L nasal cannula. General Examination: This is a chronically ill looking 83-year-old male lying in bed in no acute distress. Cardiovascular: S1, S2 heard. No murmurs, gallops or rubs. Regular rate and rhythm. Respiratory: Coarse breath sounds and wheezing still noted in both pulmonary sanchez, mostly noted in both bases. Patient is not using any accessory muscles or having work of breathing. Abdomen: Soft, nontender to palpation. Bowel sounds present. No organomegaly. Extremities: No clubbing, cyanosis or edema. Peripheral pulses present in both legs. Neurologic: Patient is alert and oriented x3. Moves four extremities. LABORATORY DATA: White cell count 9.15, hemoglobin 11.4, hematocrit 35.7, platelets 202,000, with normal BMP. ASSESSMENT AND PLAN: 1. Healthcare associated pneumonia. Patient is on Zyvox and Zosyn, day #4 for Zosyn and day #2 for Zyvox. Clinically he is stable. He continues to require 3 L of oxygen by nasal cannula. He is still having some cough. He is noticing some phlegm that this patient is not able to bring out. At this point, we will continue with the same management in this case with antibiotics, DuoNeb every four hours as scheduled. 2. Chronic obstructive pulmonary disease exacerbation secondary to condition # 1. We will continue with the same management. 3. Hypertension. Blood pressure has been under control in the range of 130s to 150s. We will continue with the same management. 4. Bilateral lung cancer. That condition is stable. 5. Anemia of chronic disease. Hemoglobin is stable. Will continue to monitor complete blood count. DISPOSITION: At this point, we are going to continue with the same management. I think this patient will need a few more days in order to improve. I think he will need to go to rehab after he is feeling much better for pneumonia. cc: Steve Gentile MD MTDD
[2018-07-16] MEDS: HYDROMET LIQUID PO PRN ×3 (01:08→20:56)
[2018-07-16] MEDS: TESSALON PO PRN ×3 (01:08→20:56)
[2018-07-16] MEDS: DUONEB (A & A) INH SCH ×6 (03:15→23:21)
[2018-07-16] MEDS: MAXIPIME 2 GM in NS 100 ML IV SCH ×2 (03:15→14:31)
[2018-07-16] MEDS: ZYVOX 600 MG/D5W 600 MG/300 ML IVPB IV SCH ×2 (04:17→15:41)
[2018-07-16] MEDS: SOLU-MEDROL IV SCH (04:20)
[2018-07-16] MEDS: PROTONIX PO SCH (06:35)
[2018-07-16 07:22] LABS: BASO# 0.01 X1000 (0.0-0.2); BASO% 0.1 % (0.0-0.8); HEMATOCRIT 38.7 % (42.0-52.0); HEMOGLOBIN 12.6 g/dL (14.0-18.0); IMM GRAN# 0.12 X1000 (0.0-0.04); LYMPH# 0.41 X1000 (1.2-3.4); LYMPH% 3.3 % (20.5-51.1); MCH 29.8 PG (27-31); MCHC 32.6 g/dL (33-37); MCV 91.5 FL (81-99); MONO# 0.58 X1000 (0.11-0.59); MONO% 4.7 % (1.7-9.3); NEUT# 11.18 X1000 (1.4-6.5); NEUT% 90.9 % (42.2-75.2); PLT 249 X1000 (130-400); RBC 4.23 XMIL (4.7-6.1); RDW 14.4 % (11.5-14.5)
[2018-07-16 07:43] LABS: CREATININE 1.2 mg/dL (0.7-1.2); POTASSIUM 4.5 mmol/L (3.5-5.1)
[2018-07-16] MEDS: MUCOMYST 20% INH SCH ×2 (08:39→19:36)
[2018-07-16] MEDS: PULMICORT INH SCH ×2 (08:39→19:35)
[2018-07-16] MEDS: ASPIRIN EC PO SCH (10:51)
[2018-07-16] MEDS: COREG PO SCH ×2 (10:51→20:56)
[2018-07-16] MEDS: MUCINEX PO SCH ×2 (10:51→20:56)
[2018-07-16] MEDS: LOVENOX SUBQ SCH (10:51)
[2018-07-16] MEDS: NEURONTIN PO SCH ×2 (10:51→20:56)
[2018-07-16] MEDS: MIRALAX PO SCH (10:51)
[2018-07-16] MEDS: HYDROCHLOROTHIAZIDE PO SCH (10:51)
--- NOTE | 2018-07-16 12:42 | PROGRESS NOTE ---
DATE: 07/16/2018 INTERVAL HISTORY: Patient reports slow improvement in dyspnea and cough. His states that she thinks he is less short of breath with conversation and has less work of breathing. No new complaints. No acute events overnight. Clarified with patient that he is finished with chemo and radiation for his lung cancer. He states that he was still on immunotherapy infusions, but these were on hold until repeat scans later this month. LABS: WBC 12.3, hemoglobin 12.6, hematocrit 38.7, platelets 249,000. Sodium 138, potassium 4.5, chloride 97, bicarb 31, BUN 35, creatinine 1.2, glucose 150, calcium 9.0. VITAL SIGNS: T-max 98.2 degrees, pulse 86, respirations 19, blood pressure 171/ 79, O2 saturation 96% on 3 L by nasal cannula. PHYSICAL EXAMINATION: General: No acute distress, but does become slightly short of breath with conversation. Vital signs: As above. HEENT: Normocephalic, atraumatic. Moist mucous membranes. No cervical adenopathy. Cardiovascular: Regular rate and rhythm. No murmurs, rubs, or gallops. Pulmonary: Moderately decreased air entry throughout. Very faint end-expiratory wheeze. Abdomen: Soft, nontender, nondistended. Bowel sounds positive. Extremities: Peripheral pulses decreased but intact. No clubbing, cyanosis, or edema. Neurologic: Cranial nerves 2-12 grossly intact. Globally weak but no focal motor or sensory deficits. Psychiatric: Awake, alert, and oriented x3. Normal mood and affect. Skin: No new rashes or lesions identified. ASSESSMENT AND PLAN: 1. Healthcare-associated pneumonia, acute on chronic hypoxic respiratory failure. Patient on antibiotics with Zyvox and Zosyn, day 5 of antibiotics. His O2 requirements have improved to 3 L of oxygen, which he is on at home. Still some cough and dyspnea with minimal exertion, but improving. Wheezing much improved and fairly minimal at this point, so we will wean steroids. Continue antibiotics. Continue DuoNeb. 2. Chronic obstructive pulmonary disease with exacerbation. Continue with DuoNeb. Wean steroids. Appears to be improved at this point. 3. Bilateral lung cancer, status post chemotherapy and radiation. Immunotherapy on hold. Will need to follow up with Dr. Zelaya after discharge for further evaluation. 4. Pulmonary fibrosis, likely contributing to above respiratory issues. No acute intervention at this time. 5. Anemia of chronic disease. Blood counts essentially stable. Will continue to monitor. 6. Deep vein thrombosis prophylaxis. Lovenox. 7. Disposition. Likely to rehab early next week if he continues to improve. NGUYỄN
[2018-07-17] MEDS: MAXIPIME 2 GM in NS 100 ML IV SCH ×2 (01:51→15:06)
[2018-07-17] MEDS: ZYVOX 600 MG/D5W 600 MG/300 ML IVPB IV SCH ×2 (03:15→15:06)
[2018-07-17] MEDS: DUONEB (A & A) INH SCH ×6 (04:50→23:42)
[2018-07-17] MEDS: PROTONIX PO SCH (06:35)
[2018-07-17] MEDS: PULMICORT INH SCH ×2 (07:40→19:25)
[2018-07-17] MEDS: MUCOMYST 20% INH SCH ×2 (07:41→19:25)
[2018-07-17] MEDS: MIRALAX PO SCH (09:02)
[2018-07-17] MEDS: NEURONTIN PO SCH ×2 (09:03→21:24)
[2018-07-17] MEDS: TESSALON PO PRN ×3 (09:03→21:24)
[2018-07-17] MEDS: MUCINEX PO SCH ×2 (09:03→21:24)
[2018-07-17] MEDS: HYDROMET LIQUID PO PRN ×3 (09:03→21:24)
[2018-07-17] MEDS: COREG PO SCH ×2 (09:03→21:24)
[2018-07-17] MEDS: ASPIRIN EC PO SCH (09:03)
[2018-07-17] MEDS: HYDROCHLOROTHIAZIDE PO SCH (09:04)
[2018-07-17] MEDS: LOVENOX SUBQ SCH (09:04)
[2018-07-17] MEDS: SOLU-MEDROL IV SCH (09:04)
--- NOTE | 2018-07-17 13:21 | PROGRESS NOTE ---
DATE: 07/17/2018 INTERVAL HISTORY: The patient was stable on oxygen requirements this morning but somewhat increased nonproductive cough and somewhat increased dyspnea. Remains afebrile. No other acute events overnight. No other new complaints. Repeat chest x-ray pending. REVIEW OF SYSTEMS: Twelve point review of systems negative except as per interval history. VITALS: T-max 98.6 degrees, pulse 79, respirations 20, blood pressure 149/71, O2 saturation 96 percent on 3 L by nasal cannula. PHYSICAL EXAM: General: No acute distress, but becomes significantly short of breath with conversation. Vital signs as above. HEENT: Normocephalic, atraumatic. Moist mucous membranes. Neck: No cervical adenopathy. Cardiovascular: Regular rate and rhythm. No murmurs, rubs, or gallops. Pulmonary: Mildly decreased air entry throughout. No wheezing. Some scattered rhonchi. Very slightly increased work of breathing. Abdomen: Soft, nontender, nondistended. Bowel sounds positive. Extremities: Peripheral pulses decreased but intact. No clubbing, cyanosis or edema. Neurologic: Cranial nerves II-XII grossly intact, globally weak but no focal deficits. Psychiatric: Awake, alert, oriented x3. Normal mood and affect. Skin: No new rashes identified. ASSESSMENT AND PLAN: 1. Acute on chronic hypoxic respiratory failure: Multifactorial with healthcare associated pneumonia, COPD, bilateral lung cancer, and pulmonary fibrosis. O2 requirements stable but some slightly increased dyspnea and work of breathing today. No wheezing so I do not believe this COPD exacerbation. We will leave steroids where they are. Continue breathing treatment. Repeat chest x-ray pending. On day 6 of antibiotics with Zyvox and Zosyn which we will continue. We will ask pulmonology to see. 2. Healthcare associated pneumonia, on antibiotics as above. Afebrile. Only minimal leukocytosis. Continue to monitor. 3. Chronic obstructive pulmonary disease with exacerbation. The patient thought to have aspiration on admission but had very little wheezing yesterday and none today. Weaning steroids, continue DuoNeb's. 4. Bilateral lung cancer, status post chemo and radiation. Immunotherapy on hold. Will need to follow up with Dr. Zelaya after discharge. 5. Pulmonary fibrosis, likely contributing to above respiratory issues. No intervention possible at this time. 6. Anemia of chronic disease. Blood counts stable. Continue to monitor labs. 7. Deep vein thrombosis prophylaxis. Lovenox. DISPOSITION: Likely to rehab next week if his respiratory status improves, but long-term prognosis is likely poor.
[2018-07-18] MEDS: MAXIPIME 2 GM in NS 100 ML IV SCH (02:59)
--- NOTE | 2018-07-18 03:03 | PULMONOLOGY CONSULTATION ---
DATE: 07/17/2018 HISTORY OF PRESENT ILLNESS: Mr. Woodson is an 83-year-old white male with inoperable lung cancer on palliative immunotherapy. Lung cancer was diagnosed in September of 2017. He was evaluated by this practitioner in April, and his CT scan at that time revealed fibrosis and emphysema with new infiltrates. The patient had been without fever or chills at that time. He was initiated on steroids and he reports he has maintained steroids since discharge. Unfortunately, he lives alone and his son lives in [place]. He has not seen his son since the last time I saw him in April. The patient reports he is scheduled to see Dr. Zelaya next week to discuss chemotherapy. He has not had a recent dose. He presented to the emergency room on 07/09/2018 with increased cough, increased shortness of breath, and dyspnea with minimal exertion. His eosinophil count on admission was 6% suggesting that he was not taking steroids on admission. He underwent a CT scan of the thorax which revealed bilateral scarring consistent with pulmonary fibrosis along with progressive consolidation in the right lower lobe when compared to 04/25/2018. He was initiated on broad-spectrum antibiotics for possible pneumonia. His white blood count has remained low until yesterday. He believes his breathing has marginally improved. He continues to rehab shortness of breath with minimal exertion. He has not had a chest x-ray in the last week. PAST MEDICAL HISTORY: Problem List: 1. Inoperable lung cancer on palliative immunotherapy. 2. Pulmonary fibrosis. 3. Prior history of miliary infiltrate felt to be related to [place]ever. 4. Hypertension. 5. Coronary artery disease. 6. Status post appendectomy. 7. Status post tonsillectomy. 8. Status post carotid endarterectomy. 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 He has been a nonsmoker for 20 years. He has no family locally. FAMILY HISTORY: Noncontributory to current presentation. REVIEW OF SYSTEMS: Negative except as noted in the HPI. PHYSICAL EXAMINATION: General: Reveals a frail, chronically ill-appearing male who has dyspnea with any movement in the bed. Vital Signs: Blood pressure 131/73, heart rate 80, respiratory rate 20, oxygen saturation 97% on 3 L. HEENT: Pupils are equal and reactive. Oropharynx is clear. Neck: Supple. Chest: Reveals bilateral crackles predominantly in the bases. Cardiac: S1, S2. Abdomen: Soft and protuberant with some bruising associated with DVT prophylaxis. Extremities: Reveal trace edema. LABORATORY DATA: White blood count 12.30, hemoglobin 12.6, platelet [place] 249,000. CT scan as per HPI. IMPRESSION: An 83-year-old with inoperable lung cancer, component of fibrosis, with some progressive infiltrates in the right lung base. It is not clear whether these infiltrates represent an infection, a lung injury associated with prior radiation, or a manifestation of his lung cancer. Unfortunately, the patient is too ill for bronchoscopy and biopsies. Overall his prognosis is poor. At this juncture, would consider transitioning the patient to an oral antibiotic regimen such as ciprofloxacin or Levaquin and doxycycline, with prednisone 20 mg each day. I do not believe he is a good candidate for aggressive intervention and I believe his prognosis is fairly guarded. RECOMMENDATIONS: 1. Obtain a chest x-ray for comparison to admission. 2. Consider transitioning antibiotics as outlined above. 3. Would continue prednisone at 20 mg per day. 4. Recommend follow up with Dr. Zelaya. End of life discussions need to occur with this patient. 5. Prognosis is poor. cc: Domenico Maldonado MD
[2018-07-18] MEDS: ZYVOX 600 MG/D5W 600 MG/300 ML IVPB IV SCH (03:28)
[2018-07-18] MEDS: TESSALON PO PRN ×4 (03:28→22:25)
[2018-07-18] MEDS: HYDROMET LIQUID PO PRN ×4 (03:28→22:25)
[2018-07-18] MEDS: DUONEB (A & A) INH SCH ×6 (03:37→23:43)
[2018-07-18] MEDS: PROTONIX PO SCH (06:28)
[2018-07-18] MEDS: PULMICORT INH SCH ×2 (07:49→20:25)
[2018-07-18] MEDS: MUCOMYST 20% INH SCH ×2 (07:50→20:25)
[2018-07-18] MEDS: MUCINEX PO SCH ×2 (08:24→22:16)
[2018-07-18] MEDS: NEURONTIN PO SCH ×2 (08:24→22:16)
[2018-07-18] MEDS: SOLU-MEDROL IV SCH (08:25)
[2018-07-18] MEDS: HYDROCHLOROTHIAZIDE PO SCH (08:25)
[2018-07-18] MEDS: MIRALAX PO SCH (08:25)
[2018-07-18] MEDS: ASPIRIN EC PO SCH (08:25)
[2018-07-18] MEDS: LOVENOX SUBQ SCH ×2 (08:25→08:31)
[2018-07-18] MEDS: COREG PO SCH ×2 (08:25→22:16)
--- NOTE | 2018-07-18 11:08 | Diag Imaging Result Doc PS360 ---
CHEST-2 VIEWS - 07/18/2018 INDICATION: abnormal exam COMPARISON: 07/10/2018 FINDINGS: Stable left chest port and sternotomy wires. There is slight improvement in the pulmonary vascular congestion and diffuse bilateral interstitial infiltrates. There is decrease in the opacity at the right hilum. No new infiltrates. Heart size is top normal. No pneumothorax or significant pleural effusion. Stable biapical pleural thickening that appears most likely to be scarring. IMPRESSION: Improvement from prior. Electronically signed by Ahmet Hughes 07/18/2018 11:05 AM
[2018-07-18] MEDS: LEVAQUIN PO SCH (12:53)
--- NOTE | 2018-07-18 13:29 | PROGRESS NOTE ---
DATE: 07/18/2018 INTERVAL HISTORY: The patient is still with dyspnea on any exertion but fairly comfortable at rest. Oxygen demands stable. Remains afebrile. No other acute events overnight. No new complaints. REVIEW OF SYSTEMS: Twelve-point review of systems negative except for what is in interval history. IMAGING: Repeat chest x-ray with slight improvement in infiltrates and edema. Stable scarring and chest port. Vital Signs: T-max 98.6, pulse 72, respirations 20, blood pressure 146/77, O2 sat 96% on 3 L by nasal cannula. PHYSICAL EXAMINATION: General: In no acute distress. Vital signs as above. HEENT: Normocephalic, atraumatic. Moist mucous membranes. No cervical adenopathy. Cardiovascular: Regular rate and rhythm. No murmurs, rubs, or gallops. Pulmonary: Mildly decreased air entry throughout. No wheezing. No increased work of breathing at rest but does become slightly tachypneic with conversation or any activity. Abdomen is soft, nontender, nondistended. Bowel sounds positive. Extremities: Peripheral pulses decreased, intact. No clubbing, cyanosis, or edema. Cranial nerves 2-12 grossly intact. Globally weak but no focal deficits. Psychiatric: Awake, alert, and oriented x3. Normal mood and affect. Skin: No new rashes or lesions identified. ASSESSMENT AND PLAN: 1. [id number] hypoxic respiratory failure, multifactorial with healthcare associated pneumonia, which appears to be improved, chronic obstructive pulmonary disease, bilateral lung cancer, and pulmonary fibrosis. O2 requirements stable and dyspnea with exertion largely stable as well. Still with no wheezing. So we will wean down steroids further. Pulmonology was consulted and recommend transition to p.o. antibiotics and steroids. This may be approximately as good as his lungs are likely to get given significant underlying issues which are largely untreatable including COPD without exacerbation, pulmonary fibrosis, and lung cancer. Anticipate discharge to rehab early next week, but he will really need follow-up with Dr. Zelaya to discuss goals of care. 2. Healthcare-associated pneumonia. Transitioning antibiotics to p.o. doxycycline and Levaquin as per pulmonology records. Afebrile. 3. Chronic chronic obstructive pulmonary disease with exacerbation. The patient thought to have exacerbation on admission, but no wheezing at this point. Continue nebulizers as needed, weaning steroids to 20 p.o. which we will continue. 4. Bilateral lung cancer, status post chemo and radiation. Therapy on hold. Will need to follow up with Dr. Zelaya after discharge. Prognosis likely poor. 5. Pulmonary fibrosis, likely contributing to chronic respiratory issues as above. No treatment available. 6. Anemia of chronic disease. Blood counts stable on last check. Repeat labs in the morning. 7. Deep venous thrombosis prophylaxis; Lovenox. DISPOSITION: Likely to rehab early next week as long as no acute events develop but alf prognosis likely quite poor.
[2018-07-18] MEDS: DOXYCYCLINE PO SCH (22:16)
[2018-07-19] MEDS: HYDROMET LIQUID PO PRN ×2 (00:30→09:47)
[2018-07-19] MEDS: TESSALON PO PRN ×2 (02:28→09:47)
[2018-07-19] MEDS: DUONEB (A & A) INH SCH ×2 (03:27→07:52)
[2018-07-19] MEDS: PROTONIX PO SCH (06:02)
[2018-07-19] MEDS: MUCOMYST 20% INH SCH (07:52)
[2018-07-19] MEDS: PULMICORT INH SCH (07:52)
[2018-07-19 08:50] LABS: BASO# 0.03 X1000 (0.0-0.2); BASO% 0.2 % (0.0-0.8); EOS# 0.15 X1000 (0.0-0.7); EOS% 0.9 % (0.0-10.0); HEMATOCRIT 41.9 % (42.0-52.0); HEMOGLOBIN 13.3 g/dL (14.0-18.0); IMM GRAN# 0.16 X1000 (0.0-0.04); LYMPH# 0.74 X1000 (1.2-3.4); LYMPH% 4.6 % (20.5-51.1); MCH 29.3 PG (27-31); MCHC 31.7 g/dL (33-37); MCV 92.3 FL (81-99); MONO% 6.8 % (1.7-9.3); MPV 11.2 FL (7.4-10.4); NEUT% 86.5 % (42.2-75.2); PLT 242 X1000 (130-400); RBC 4.54 XMIL (4.7-6.1); RDW 14.8 % (11.5-14.5); WBC 16.18 X1000 (4.8-10.8)
[2018-07-19] MEDS ORDERED: PREDNISONE PO SCH (09:00)
[2018-07-19 09:10] LABS: AGAP 8; BUN 28 mg/dL (8-22); CALCIUM 8.7 mg/dL (8.8-10.2); CHLORIDE 96 mmol/L (98-107); COSMO 282; CREATININE 1.1 mg/dL (0.7-1.2); ESTIMATED GFR > 60; GLUCOSE 109 mg/dL (70-104); POTASSIUM 4.3 mmol/L (3.5-5.1); SODIUM 138 mmol/L (136-145); TCO2 34 mmol/L (25-35)
[2018-07-19 09:34] LABS: BANDS 1 % (0-1); EOS 1 % (1-10); LYMPHS 6 % (21-51); MONO 8 % (1-9); SEGS 84 % (42-75)
[2018-07-19 09:35] LABS: HYPOCHROM 1+; LARGE PLATELETS OCCASIONAL
[2018-07-19] MEDS ORDERED: CALMOSEPTINE OINTMENT TOP PRN (09:37)
[2018-07-19] MEDS: ASPIRIN EC PO SCH (09:40)
[2018-07-19] MEDS: DOXYCYCLINE PO SCH (09:40)
[2018-07-19] MEDS: MUCINEX PO SCH (09:40)
[2018-07-19] MEDS: COREG PO SCH (09:40)
[2018-07-19] MEDS: HYDROCHLOROTHIAZIDE PO SCH (09:40)
[2018-07-19] MEDS: NEURONTIN PO SCH (09:40)
[2018-07-19] MEDS: LOVENOX SUBQ SCH (09:41)
[2018-07-19] MEDS: MIRALAX PO SCH (09:41)
[2018-07-19] MEDS: LEVAQUIN PO SCH (09:42)
--- NOTE | 2018-07-19 11:28 | PROGRESS NOTE ---
DATE: 07/19/2018 SUBJECTIVE: Patient with increased cough overnight. Remains largely nonproductive. No increase in dyspnea or O2 requirements aside from during coughing fits. Remains afebrile. No other new complaints. No other acute events overnight. REVIEW OF SYSTEMS: Twelve point review of systems negative except as per interval history. LABS: WBC 16.1, hemoglobin 13.3, hematocrit 41.9, platelets 242,000. BUN 28, creatinine 1.1, glucose 109. IMAGING: Chest x-ray 07/18 with slight improvement in vascular congestion and interstitial infiltrates. VITAL SIGNS: T-max 98.6 degrees, pulse 80, respirations 20, blood pressure 141/87, O2 saturation 95% on 4 L. PHYSICAL EXAMINATION: General: No acute distress. Vital signs: As above. HEENT: Normocephalic, atraumatic. Moist mucous membranes. No cervical adenopathy. Cardiovascular: Regular rate and rhythm. No murmurs, rubs, or gallops. Pulmonary: Slight right lower lobe crackles, but otherwise clear to auscultation bilaterally. Abdomen: Soft, nontender, nondistended. Bowel sounds positive. Extremities: Peripheral pulses intact but slightly decreased. No clubbing, cyanosis, or edema. Neurologic: Cranial nerves 2-12 grossly intact. Globally weak but no focal deficits. Psychiatric: Awake, alert, oriented x3. Normal mood and affect. Skin: No new rashes or lesions noted. ASSESSMENT AND PLAN: 1. Acute on chronic hypoxic respiratory failure: Multifactorial with healthcare-associated pneumonia, which appeared to be improving, chronic obstructive pulmonary disease, bilateral lung cancer, and pulmonary fibrosis. O2 requirements stable but some increased in nonproductive cough and increased leukocytosis today. Some right lower lobe crackles on exam. As we see changed his antibiotics to p.o. yesterday and have been weaning steroids, we will obtain a CT chest without contrast to clarify. If the CT chest shows no new acute process then this may be as good as we are able to get his respiratory status given underlying COPD, fibrosis, and malignancy. Anticipate discharge to rehab once otherwise stable and bed available. Will need to follow up with Dr. Zelaya to discuss treatment plans and goals of care. 2. Healthcare-associated pneumonia. Transitioned antibiotics yesterday to doxycycline and Levaquin as per Pulmonology recommendations. Obtaining CT chest to clarify if he may have a new or worsening infection. Remains afebrile but with increased leukocytosis and increased nonproductive cough. 3. Chronic obstructive pulmonary disease with exacerbation. Patient thought to have exacerbation on admission, but no wheezing and good air entry at this point, so appears to be resolved. Continue nebulizers as needed. Steroids weaned to 20 mg p.o., which we will continue. 4. Bilateral lung cancer, status post chemotherapy and radiation. Further therapy on hold. Will need follow up with Dr. Zelaya after discharge. Prognosis likely poor. 5. Pulmonary fibrosis, likely contributing to respiratory issues as above. No treatment options at this time. 6. Anemia of chronic disease. Blood count stable. Monitor. 7. Deep vein thrombosis prophylaxis. Lovenox.
[2018-07-19 11:52] VITALS: BP 127/68
--- NOTE | 2018-07-20 03:52 | DISCHARGE SUMMARY ---
DISCHARGE AMA NOTE ADMISSION DATE: 07/09/2018 DISCHARGE DATE: 07/19/2018 CONSULTATIONS: Pulmonary. IMAGIN. Initial CT of chest, extensive emphysematous changes, interstitial scarring and fibrosis, consolidation in the right lower lobe and posterior right upper lobe, consistent with pneumonia. 2. Followup chest x-ray on 07/18/2018, improvement in pulmonary vascular congestion and diffuse bilateral interstitial infiltrates, decrease in opacity of the right hilum, stable biapical pleural thickening favored to represent scarring/fibrosis. LABS: Blood cultures negative. Discharge WBCs 16.8, hemoglobin 13, hematocrit 41.9, platelets 242,000. BUN 28, creatinine 1.1 on discharge. Basic metabolic panel otherwise unremarkable. DISCHARGE DIAGNOSES: 1. Acute on chronic hypoxic respiratory failure. 2. Healthcare-associated pneumonia. 3. Chronic obstructive pulmonary disease. 4. Bilateral lung cancer. 5. Pulmonary fibrosis. 6. General weakness. 7. Anemia of chronic disease. 8. Chronic kidney disease 2, bordering on chronic kidney disease 3. HOSPITAL COURSE: The patient presented initially with increasing shortness of breath over the last few days. He was found to have primarily right-sided pneumonia. He was treated with vancomycin and Zosyn given significant underlying lung disease with inoperable cancer, COPD, and fibrosis. He did improve initially and was able to be weaned back down to the 3 L of oxygen that he takes at home. He continued to have a fairly significant nonproductive cough. On the day of discharge, he had a further increase in cough as well as a significant jump in the white count from 9 to 12 to 16 on the day of discharge. Because of this, a CT of the chest was ordered but prior to being obtained, the patient elected to leave against medical advice. This was discussed with the patient. It was explained to him that since his transition to by mouth antibiotics 2 days prior, his white count had been increasing, as had his cough, although his chest x-ray looked somewhat better and he remained afebrile. I explained that because of this, there was concern that p.o. antibiotics might be ineffective and that he may be developing a new or worsening infection. The patient expressed understanding and remained adamant in his decision to leave. I discussed with the patient that there were concerns about his ability to take care of himself at home as he had been quite weak, and the plan was for him to go to rehab. I explained to the patient that it would be difficult to impossible for him to go to rehab from home once he left the hospital. The patient expressed understanding of all this and again reaffirmed his desire to leave against medical advice. He stated that he had a friend who would come pick him up and help him at home. Said friend did come to the hospital. This was also explained to the friend who also expressed understanding about our reluctance for him to go home at all, and especially today. DISCHARGE VITAL SIGNS: Temperature 97.6 degrees, pulse rate 85, respirations 18 , blood pressure 127/68, O2 saturation 95% on 4 L by nasal cannula. DISCHARGE DIET: Regular. DISCHARGE MEDICATIONS: The patient's home medications plus a course of doxycycline 100 mg p.o. b.i.d., Levaquin 750 mg p.o. daily, and prednisone 20 mg p.o. daily. FOLLOWUP AND PLAN: Patient signed out against medical advice. Patient was provided prescriptions for p.o. antibiotics and prednisone with repeated advice that these may not be effective. Patient instructed to return to care if his breathing worsens. Patient planning to discuss current status of his cancer and goals of care with his regular oncologist, Dr. Zelaya. Greater than 30 minutes were spent counseling the patient prior to discharge. [facility]
== END 2018-07-19 15:10 | disposition left against medical advice (07) | DRG 871 ==
LOC: ED 15:02 → EDIPHOLD 18:29 → SUATTDRO 18:29 → 3N 07-10 12:45
PROVIDERS: ATTEND Internal Medicine
CPT/HCPCS: 71010; 71020; 71045; 71046; 71260; 80048; 80053; 80202; 82805; 83605; 84484; 85025; 87040; 87070; 87205; 93005; 94640; 94761; 94799; 96361; 96365; 96366; 96367; 96372; 97110; 97162; 97530; 99285; 99291; A9270; C9113; J0692; J1650; J2020; J2543; J2920; J2930; J3370; J7030; J7040; J7050; J7506; J7512; Q9967; S0164